=== PATIENT | female | born 1930 | race Caucasian/White ===

== ENCOUNTER 2017-10-05 12:20 | Inpatient (IN) | payer MEDICARE, BC ==
[~2017-10-05] VITALS: Ht 152.4 cm; Wt 66.7 kg
[2017-10-05] MEDS ORDERED: aspirin 81mg tab.chew PO ONE (12:30)
[2017-10-05] MEDS ORDERED: nitroGLYCERIN 0.4mg SUBLingual tab SL PRN (12:30)
[2017-10-05 12:44] LABS: BASOPHILS % (AUTO) 0.5 % (0-1); EOSINOPHILS # (AUTO) 0.2 X10'3 (0-0.9); EOSINOPHILS % (AUTO) 3.9 % (0-6); HEMATOCRIT 33.9 % (35.0-45.0); HEMOGLOBIN 11.5 g/dl (12.0-16.0); LYMPHOCYTES # (AUTO) 1.7 X10'3 (1.1-4.8); LYMPHOCYTES % (AUTO) 31.8 % (21-51); MEAN CORPUSCULAR HEMOGLOBIN 28.9 PG (27.0-31.0); MONOCYTES # (AUTO) 0.6 X10'3 (0-0.9); NEUTROPHILS # (AUTO) 2.8 X10'3 (1.8-7.7); NEUTROPHILS % (AUTO) 51.8 % (42-75); PLATELET COUNT 281 X10'3 (140-440); RED BLOOD COUNT 3.98 X10'6 (4.20-5.60); RED CELL DISTRIBUTION WIDTH 14.3 % (11.5-14.5); WHITE BLOOD COUNT 5.3 X10'3 (4.5-11.0)
[2017-10-05 12:55] LABS: PARTIAL THROMBOPLASTIN TIME 31 SECONDS (22-32); PROTHROMBIN TIME 10.2 SECONDS (9.0-12.0)
[2017-10-05 12:59] LABS: ALANINE AMINOTRANSFERASE 21 U/L (12-78); ALBUMIN 3.1 G/DL (3.4-5.0); ALBUMIN/GLOBULIN RATIO 0.7 (1.1-1.5); ALKALINE PHOSPHATASE 70 IU/L (46-116); ANION GAP 10 (8-16); ASPARTATE AMINO TRANSFERASE 24 U/L (10-37); BILIRUBIN,TOTAL 0.3 MG/DL (0.1-1.0); BLOOD UREA NITROGEN 24 MG/DL (7-18); CALCIUM 8.9 MG/DL (8.5-10.1); CHLORIDE 97 MMOL/L (99-107); GLUCOSE 90 MG/DL (70-104); POTASSIUM 3.9 MMOL/L (3.5-5.1); SODIUM 135 MMOL/L (135-145); TOTAL CARBON DIOXIDE 27.8 MMOL/L (24-32); TOTAL PROTEIN 7.3 G/DL (6.4-8.2); eGFR 43 ML/MIN
[2017-10-05] MEDS ORDERED: ipratropium/albuterol 3ml nebule ONE (13:53)
[2017-10-05] MEDS ORDERED: magnesium hydroxide 30ml (MOM) UD suspension PO PRN (14:35)
[2017-10-05] MEDS ORDERED: acetaminophen 325mg tablet PO PRN ×2 (14:35)
[2017-10-05] MEDS ORDERED: enoxaparin 40mg/0.4ml syringe SUBCUT SCH (14:35)
[2017-10-05] MEDS ORDERED: mag hydrox/Alum hydrox/simeth 30ml oral suspension PO PRN (14:35)
[2017-10-05] MEDS ORDERED: HYDROcodone/acetaminophen 5mg/325mg tablet PO PRN (14:35)
[2017-10-05] MEDS ORDERED: ondansetron/PF 4mg/2ml inj IV PRN (14:35)
[2017-10-05] MEDS ORDERED: albuterol 2.5 MG/3 ML nebule NEB ONE (15:05)
[2017-10-05] MEDS ORDERED: ASPI-1265 PO (15:26)
[2017-10-05] MEDS ORDERED: LOSA25TA96 PO (15:27)
[2017-10-05] MEDS ORDERED: METO-395 PO (15:28)
[2017-10-05] MEDS ORDERED: FLUO20CA39 PO (15:29)
[2017-10-05] MEDS ORDERED: OMEP-271 PO (15:30)
[2017-10-05 15:32] LABS: CLARITY,URINE SLIGHTLY CLOUDY (Clear); COLOR,URINE YELLOW (Yellow); GLUCOSE, URINE NEGATIVE (Neg); KETONES,URINE NEGATIVE (Neg); LEUKOCYTE ESTERASE ,URINE SMALL (Neg); NITRITES, URINE NEGATIVE (Neg); OCCULT BLOOD,URINE TRACE-LYSED (Neg); PH,URINE 5.5 (4.8-8.0); PROTEIN,URINE NEGATIVE (Neg); UA COLLECTION TYPE CLN CATCH MIDSTREAM; UROBILINOGEN,URINE 0.2 E.U/dL (0.2-1.0)
[2017-10-05] MEDS ORDERED: ROPI0.253 PO (15:32)
[2017-10-05] MEDS ORDERED: HYDR25TA4 PO (15:33)
[2017-10-05] MEDS ORDERED: LOSA50TA37 PO (15:35)
[2017-10-05] MEDS ORDERED: ALPR-624 (15:36)
[2017-10-05] MEDS ORDERED: GABA-532 PO (15:36)
[2017-10-05] MEDS ORDERED: OXYB5TAB11 PO (15:38)
[2017-10-05] MEDS ORDERED: FLUT1DIS4 INH (15:39)
[2017-10-05] MEDS ORDERED: ALBU18HF2 INH (15:40)
[2017-10-05] MEDS ORDERED: TIOT18CA3 (15:41)
[2017-10-05 15:45] LABS: BACTERIA,URINE 1+ /HPF (Neg); RBC,URINE 0-2 /HPF (0-2); SQUAMOUS EPITHELIAL CELL,UR FEW /LPF (FEW); WBC,URINE 50-100 /HPF (0-4)
[2017-10-05 15:46] LABS: WBC CLUMPS,URINE MODERATE /HPF (NEGATIVE)
[2017-10-05] MEDS: HYDROchlorothiazide 25mg tablet PO SCH (16:53)
[2017-10-05] MEDS: FLUoxetine 20mg capsule PO SCH (16:53)
[2017-10-05 17:40] VITALS: BP 163/85
[2017-10-05] MEDS: losartan 50mg tablet PO SCH (17:58)
[2017-10-05 19:00] VITALS: BP 165/85
[2017-10-05] MEDS: normal saline 1000ml 1,000 ML IV SCH (19:55)
[2017-10-05] MEDS ORDERED: temazepam 15mg capsule PO PRN (19:55)
[2017-10-05] MEDS: aspirin 81mg tablet.DR PO SCH (20:00)
[2017-10-05] MEDS ORDERED: enoxaparin 30mg/0.3ml syringe SQ SCH (20:00)
[2017-10-05] MEDS ORDERED: enoxaparin 40mg/0.4ml syringe SQ SCH (20:00)
[2017-10-05] MEDS ORDERED: enoxaparin 30mg/0.3ml syringe SUBCUT SCH (20:00)
[2017-10-05] MEDS: ipratropium/albuterol 3ml nebule NEB SCH ×3 (20:00→23:41)
[2017-10-05] MEDS: ALPRAZolam 0.5mg tablet PO PRN (20:30)
[2017-10-05] MEDS ORDERED: ROPINIRole 0.25mg tablet PO SCH (21:00)
[2017-10-05] MEDS ORDERED: sennosides/docusate sodium tablet PO SCH (21:00)
[2017-10-05] MEDS ORDERED: gabapentin 300mg capsule PO SCH (21:00)
[2017-10-05] MEDS ORDERED: atorvastatin 20mg tablet PO SCH (21:00)
[2017-10-05 23:00] VITALS: BP 105/59
[2017-10-06] VITALS (8 sets, daily range): BP systolic 114–159; BP diastolic 53–84
[2017-10-06 01:07] LABS: HEMATOCRIT 30.1 % (35.0-45.0); HEMOGLOBIN 10.2 g/dl (12.0-16.0); MEAN CORPUSCULAR HEMOGLOBIN 28.6 PG (27.0-31.0); MEAN CORPUSCULAR HGB CONC 33.8 % (33.0-36.5); MEAN CORPUSCULAR VOLUME 84.6 FL (78-98); MEAN PLATELET VOLUME 7.2 FL (7.4-10.4); PLATELET COUNT 223 X10'3 (140-440); RED BLOOD COUNT 3.56 X10'6 (4.20-5.60); RED CELL DISTRIBUTION WIDTH 13.4 % (11.5-14.5); WHITE BLOOD COUNT 4.7 X10'3 (4.5-11.0)
[2017-10-06 01:26] LABS: ALBUMIN 2.4 G/DL (3.4-5.0); ANION GAP 9 (8-16); BLOOD UREA NITROGEN 17 MG/DL (7-18); BUN/CREATININE RATIO 18.3 (6.6-38.0); CALCIUM 7.3 MG/DL (8.5-10.1); CHLORIDE 106 MMOL/L (99-107); CHOL/HDL RATIO 2.4 (0.00-4.99); CHOLESTEROL 112 MG/DL (0-200); CREATININE 0.93 MG/DL (0.40-0.90); GLUCOSE 83 MG/DL (70-104); HDL CHOLESTEROL 46 MG/DL (35-60); LDL CHOLESTEROL 43 MG/DL (50-100); SODIUM 142 MMOL/L (135-145); TOTAL CARBON DIOXIDE 26.6 MMOL/L (24-32); TRIGLYCERIDES 89 MG/DL (20-135); eGFR 57 ML/MIN
[2017-10-06 01:29] LABS: POTASSIUM 2.8 MMOL/L (3.5-5.1)
[2017-10-06] MEDS ORDERED: potassium Cl 40MEQ/NS 500ml 500 ML IV PRN ×2 (01:30)
[2017-10-06] MEDS ORDERED: magnesium Cl slow-release 64mg tablet PO PRN (01:30)
[2017-10-06] MEDS ORDERED: magnesium 2GM in 50ml NS 50 ML IV PRN (01:30)
[2017-10-06] MEDS ORDERED: potassium Cl 20 mEq SR tablet PO PRN (01:30)
[2017-10-06] MEDS ORDERED: magnesium 4gm in 100ml NS 100 ML IV PRN (01:30)
[2017-10-06] MEDS: potassium Cl 20 mEq SR tablet PO PRN ×2 (01:45→05:37)
[2017-10-06] MEDS: ipratropium/albuterol 3ml nebule NEB SCH ×4 (04:00→15:05)
[2017-10-06] MEDS: ALPRAZolam 0.5mg tablet PO PRN (04:32)
[2017-10-06] MEDS ORDERED: fentaNYL/PF 50MCG/1 ML 2ML syringe ONE (06:36)
[2017-10-06] MEDS ORDERED: heparin 1,000unit/ml 10ml vial 10 ML ONE (06:36)
[2017-10-06] MEDS ORDERED: LIDOcaine 1%/PF (10mg/ml) 5ml vial ONE (06:36)
[2017-10-06] MEDS ORDERED: midazolam 2 mg/2 ml injection ONE (06:36)
[2017-10-06] MEDS ORDERED: iohexol 350 MG/ML 50ML vial IV ONE (06:36)
[2017-10-06] MEDS ORDERED: nitroGLYCERIN-Tridil 50MG/D5W 250 ML IV ONE (06:36)
[2017-10-06] MEDS ORDERED: iohexol 350MG/ML 100ml bottle IV ONE ×2 (06:36→07:42)
[2017-10-06] MEDS ORDERED: pantoprazole 40mg Tablet.DR PO SCH (07:30)
[2017-10-06] MEDS: aspirin 81mg tablet.DR PO SCH (08:00)
[2017-10-06] MEDS: FLUoxetine 20mg capsule PO SCH (08:00)
[2017-10-06] MEDS: HYDROchlorothiazide 25mg tablet PO SCH (08:00)
[2017-10-06] MEDS: losartan 50mg tablet PO SCH (08:00)
[2017-10-06] MEDS: normal saline 1000ml 1,000 ML IV SCH (09:15)
[2017-10-06 12:56] LABS: ISTAT HGB ART 11.2 g/dl (12.0-16.0); ISTAT Hct ART 33 %PCV (35-48); ISTAT Hct MIX 34 %PCV (35-48); ISTAT O2 SATURATION ARTERIAL 98 % (95-98); ISTAT O2 SATURATION MIX VENOUS 69 % (60-80); ISTAT SOURCE ART; ISTAT SOURCE MIX
[2017-10-06] MEDS ORDERED: LOSA50TA37 PO (15:31)
== END 2017-10-06 17:06 | disposition home or self-care (01) | DRG 287 ==
LOC: ER 12:20 → ED HOLD 14:32 → PCU 3S 17:30
PROVIDERS: ADMIT Family Medicine; ATTEND Family Medicine
PROC: 4A023N8 Measurement of Cardiac Sampling and Pressure, Bilateral, Percutaneous Approach (ICD-10-PCS; principal; 2017-10-06)
PROC: B2111ZZ Fluoroscopy of Multiple Coronary Arteries using Low Osmolar Contrast (ICD-10-PCS; 2017-10-06)
PROC: B2151ZZ Fluoroscopy of Left Heart using Low Osmolar Contrast (ICD-10-PCS; 2017-10-06)
DX: R07.89 Other chest pain (principal); Z99.81 Dependence on supplemental oxygen; J44.9 Chronic obstructive pulmonary disease, unspecified; I08.1 Rheumatic disorders of both mitral and tricuspid valves; I25.10 Atherosclerotic heart disease of native coronary artery without angina pectoris; R00.1 Bradycardia, unspecified; I10 Essential (primary) hypertension; E78.5 Hyperlipidemia, unspecified; F32.9 Major depressive disorder, single episode, unspecified; F41.9 Anxiety disorder, unspecified; K21.9 Gastro-esophageal reflux disease without esophagitis; G25.81 Restless legs syndrome; G89.29 Other chronic pain; J06.9 Acute upper respiratory infection, unspecified; M54.9 Dorsalgia, unspecified; Z95.5 Presence of coronary angioplasty implant and graft; Z90.49 Acquired absence of other specified parts of digestive tract; Z88.1 Allergy status to other antibiotic agents; Z88.8 Allergy status to other drugs, medicaments and biological substances; Z79.899 Other long term (current) drug therapy; Z79.01 Long term (current) use of anticoagulants; Z79.82 Long term (current) use of aspirin; Z80.6 Family history of leukemia
CPT/HCPCS: 36415; 71045; 80048; 80053; 80061; 81001; 82803; 83880; 84132; 84484; 85014; 85025; 85027; 85610; 85730; 87088; 93306; 93460; 94640; 94760; 99152; 99153; A4620; A6257; C1760; C1769; C1894; J1644; J1650; J2001; J2250; J3010; J3490; J7030; Q9967

== ENCOUNTER 2019-06-04 11:16 | Inpatient (IN) | payer MEDICARE, BC ==
[~2019-06-04] VITALS: Ht 152.4 cm; Wt 65.0 kg
[~2019-06-04 11:16] MED LIST: ALBU18HF2 INH; ALPR-624; ASPI-1265 PO; FLUO20CA39 PO; FLUT1DIS4 INH; GABA-532 PO; HYDR25TA4 PO; LOSA50TA64 PO; OMEP-271 PO; OXYB5TAB16 PO; ROPI0.2534 PO; TIOT18CA3 IH
[2019-06-04] MEDS ORDERED: ipratropium/albuterol 3ml nebule NEB ONE (12:45)
[2019-06-04] MEDS ORDERED: LOVA40TA2 PO (12:48)
[2019-06-04] MEDS ORDERED: METO-395 PO (12:48)
[2019-06-04] MEDS ORDERED: normal saline 1000ML IV soln IVB ONE (12:55)
[2019-06-04 13:24] LABS: BASOPHILS % (AUTO) 0.2 % (0-1); EOSINOPHILS % (AUTO) 0.1 % (0-6); HEMATOCRIT 32.1 % (35.0-45.0); HEMOGLOBIN 10.9 g/dl (12.0-16.0); LYMPHOCYTES # (AUTO) 1.9 X10'3 (1.1-4.8); MEAN CORPUSCULAR HEMOGLOBIN 29.6 PG (27.0-31.0); MEAN CORPUSCULAR HGB CONC 33.9 g/dL (33.0-36.5); MEAN CORPUSCULAR VOLUME 87.2 FL (78-98); MEAN PLATELET VOLUME 7.3 FL (7.4-10.4); MONOCYTES # (AUTO) 1.3 X10'3 (0-0.9); MONOCYTES % (AUTO) 6.3 % (2-12); NEUTROPHILS # (AUTO) 17.7 X10'3 (1.8-7.7); NEUTROPHILS % (AUTO) 84.4 % (42-75); PLATELET COUNT 288 X10'3 (140-440); RED BLOOD COUNT 3.68 X10'6 (4.20-5.60); RED CELL DISTRIBUTION WIDTH 15.6 % (11.5-14.5)
[2019-06-04 13:38] LABS: D-DIMER 2.02 MG/L FEU (0-0.50); PARTIAL THROMBOPLASTIN TIME 35 SECONDS (22-32)
[2019-06-04 13:40] LABS: ALANINE AMINOTRANSFERASE 18 U/L (12-78); ALBUMIN 2.5 G/DL (3.4-5.0); ALBUMIN/GLOBULIN RATIO 0.5 (1.1-1.5); ALKALINE PHOSPHATASE 96 IU/L (46-116); ANION GAP 9 (8-16); ASPARTATE AMINO TRANSFERASE 24 U/L (10-37); BILIRUBIN,TOTAL 0.8 MG/DL (0.1-1.0); BLOOD UREA NITROGEN 25 MG/DL (7-18); BUN/CREATININE RATIO 17.4 (6.6-38.0); CALCIUM 8.5 MG/DL (8.5-10.1); CHLORIDE 94 MMOL/L (99-107); CREATININE 1.44 MG/DL (0.40-0.90); GLUCOSE 117 MG/DL (70-104); POTASSIUM 3.3 MMOL/L (3.5-5.1); SODIUM 130 MMOL/L (135-145); TOTAL CARBON DIOXIDE 27.4 MMOL/L (24-32); TOTAL PROTEIN 7.3 G/DL (6.4-8.2); eGFR 34 ML/MIN
[2019-06-04 13:46] LABS: TOTAL CELLS COUNTED 100
[2019-06-04 13:47] LABS: ANISOCYTOSIS 1+; MAGNESIUM 1.7 MG/DL (1.5-2.4); PLATELET ESTIMATE NORMAL; POLYCHROMASIA FEW; TOXIC GRANULATION 3+; TOXIC VACUOLATION 1+
[2019-06-04 13:55] LABS: CLARITY,URINE CLEAR (Clear); COLOR,URINE YELLOW (Yellow); GLUCOSE, URINE NEGATIVE (Neg); KETONES,URINE NEGATIVE (Neg); LEUKOCYTE ESTERASE ,URINE NEGATIVE (Neg); NITRITES, URINE NEGATIVE (Neg); OCCULT BLOOD,URINE SMALL (Neg); PROTEIN,URINE 30 mg/dl (Neg); UA COLLECTION TYPE CLN CATCH MIDSTREAM; UROBILINOGEN,URINE 0.2 E.U/dL (0.2-1.0)
[2019-06-04 14:02] LABS: BACTERIA,URINE FEW /HPF (Neg); FINE GRANULAR CAST 0-3 /LPF (NEGATIVE); HYALINE CASTS 0-3 /LPF (NEGATIVE); MUCUS STRANDS NONE SEEN /LPF (Neg); RBC,URINE 0-2 /HPF (0-2); RENAL CELLS, URINE FEW /HPF; SQUAMOUS EPITHELIAL CELL,UR FEW /LPF (FEW); WBC,URINE 0-4 /HPF (0-4)
[2019-06-04 14:11] LABS: C-REACTIVE PROTEIN 35.52 MG/DL (0.0-0.5)
[2019-06-04] MEDS ORDERED: CefTRIAXone 2gm/D5W 50ml 50 ML IV ONE (14:45)
[2019-06-04] MEDS ORDERED: levoFLOXACIN 750MG TABLET PO ONE (14:45)
[2019-06-04] MEDS ORDERED: mag hydrox/Alum hydrox/simeth 30ml oral suspension PO PRN (14:55)
[2019-06-04] MEDS ORDERED: ondansetron/PF 4mg/2ml inj IV PRN (14:55)
[2019-06-04] MEDS ORDERED: acetaminophen 325mg tablet PO PRN (14:55)
[2019-06-04] MEDS ORDERED: magnesium hydroxide 30ml (MOM) UD suspension PO PRN (14:55)
[2019-06-04] MEDS ORDERED: ALPR1TAB7 PO (15:31)
[2019-06-04] MEDS: normal saline 1000ml 1,000 ML IV SCH (15:38)
[2019-06-04] MEDS ORDERED: cefepime 1GM in D5W 50mL 50 ML IV SCH (16:00)
[2019-06-04] MEDS: ipratropium/albuterol 3ml nebule NEB SCH ×3 (16:44→23:00)
[2019-06-04] MEDS ORDERED: albuterol 2.5 MG/3 ML nebule NEB PRN (16:50)
[2019-06-04 17:17] VITALS: BP 135/65
--- NOTE | 2019-06-04 18:13 | NUR ---
Problems reprioritized. Patient report given, questions answered & plan of care reviewed with TONY Sandoval.
[2019-06-04] MEDS ORDERED: potassium Cl 20 mEq SR tablet PO PRN (19:50)
[2019-06-04] MEDS ORDERED: magnesium 2GM in 50ml NS 50 ML IV PRN (19:50)
[2019-06-04] MEDS ORDERED: magnesium Cl slow-release 64mg tablet PO PRN (19:50)
[2019-06-04] MEDS ORDERED: potassium CL 10mEq/100ml bag 100 ML IV PRN (19:50)
[2019-06-04] MEDS ORDERED: albuterol 2.5 MG/3 ML nebule NEB SCH (20:00)
[2019-06-04] MEDS: budesonide 0.5mg/2ml UD nebule IH SCH (20:16)
[2019-06-04] MEDS: FLUoxetine 20mg capsule PO SCH (20:34)
[2019-06-04] MEDS: gabapentin 300mg capsule PO SCH (20:34)
[2019-06-04] MEDS: ROPINIRole 0.25mg tablet PO SCH (20:34)
[2019-06-04] MEDS: ALPRAZolam 0.5mg tablet PO SCH (20:34)
[2019-06-04] MEDS: heparin, porcine 5000 units/ml vial SQ SCH (20:35)
[2019-06-04] MEDS: atorvastatin 10mg tablet PO SCH (20:35)
[2019-06-04] MEDS: potassium Cl 20 mEq SR tablet PO PRN (20:35)
[2019-06-04 23:00] VITALS: BP 132/59
[2019-06-05] MEDS: normal saline 1000ml 1,000 ML IV SCH ×3 (00:54→20:54)
[2019-06-05] MEDS: cefepime 1GM in D5W 50mL 50 ML IV SCH ×4 (01:06→23:13)
[2019-06-05 01:16] LABS: BASOPHILS % (AUTO) 0.3 % (0-1); EOSINOPHILS % (AUTO) 0.1 % (0-6); HEMATOCRIT 26.7 % (35.0-45.0); HEMOGLOBIN 9.2 g/dl (12.0-16.0); LYMPHOCYTES # (AUTO) 1.6 X10'3 (1.1-4.8); LYMPHOCYTES % (AUTO) 9.6 % (21-51); MEAN CORPUSCULAR HGB CONC 34.6 g/dL (33.0-36.5); MEAN CORPUSCULAR VOLUME 86.6 FL (78-98); MEAN PLATELET VOLUME 7.1 FL (7.4-10.4); MONOCYTES # (AUTO) 1.1 X10'3 (0-0.9); MONOCYTES % (AUTO) 6.3 % (2-12); NEUTROPHILS # (AUTO) 13.9 X10'3 (1.8-7.7); NEUTROPHILS % (AUTO) 83.7 % (42-75); PLATELET COUNT 253 X10'3 (140-440); RED BLOOD COUNT 3.08 X10'6 (4.20-5.60); RED CELL DISTRIBUTION WIDTH 15.5 % (11.5-14.5); WHITE BLOOD COUNT 16.7 X10'3 (4.5-11.0)
[2019-06-05 01:32] LABS: ALBUMIN 1.9 G/DL (3.4-5.0); ANION GAP 9 (8-16); BLOOD UREA NITROGEN 21 MG/DL (7-18); BUN/CREATININE RATIO 16.7 (6.6-38.0); CALCIUM 7.4 MG/DL (8.5-10.1); CHLORIDE 100 MMOL/L (99-107); CREATININE 1.26 MG/DL (0.40-0.90); GLUCOSE 108 MG/DL (70-104); POTASSIUM 3.2 MMOL/L (3.5-5.1); SODIUM 134 MMOL/L (135-145); TOTAL CARBON DIOXIDE 25.3 MMOL/L (24-32); eGFR 40 ML/MIN
[2019-06-05 03:00] VITALS: BP 111/72
[2019-06-05] MEDS: ipratropium/albuterol 3ml nebule NEB SCH ×6 (04:25→23:00)
--- NOTE | 2019-06-05 06:13 | NUR ---
Problems reprioritized. Patient report given, questions answered & plan of care reviewed with Mili JIMENEZ.
--- NOTE | 2019-06-05 06:15 | NUR ---
Patient in room PCU 3011. I have received report from TONY Menendez and had the opportunity to ask questions and assume patient care.
[2019-06-05] MEDS: budesonide 0.5mg/2ml UD nebule IH SCH ×2 (07:06→19:08)
--- NOTE | 2019-06-05 07:07 | NUR ---
Pt declined AM B/P check.
[2019-06-05] MEDS ORDERED: ipratropium 0.5 MG/2.5ML nebule NEB SCH (08:00)
[2019-06-05 08:02] VITALS: BP 132/71
[2019-06-05] MEDS: ROPINIRole 0.25mg tablet PO SCH ×2 (08:06→19:54)
[2019-06-05] MEDS: metoprolol succinate 25mg (24-HOUR) SR. Tablet PO SCH (08:08)
[2019-06-05] MEDS: heparin, porcine 5000 units/ml vial SQ SCH ×2 (08:08→19:53)
[2019-06-05] MEDS: HYDROchlorothiazide 25mg tablet PO SCH (08:09)
[2019-06-05] MEDS: oxybutynin 5mg tablet PO SCH (08:10)
[2019-06-05] MEDS: aspirin 81mg tab.chew PO SCH (08:10)
[2019-06-05] MEDS: pantoprazole 40mg Tablet.DR PO SCH (08:11)
[2019-06-05] MEDS: losartan 50mg tablet PO SCH (08:11)
--- NOTE | 2019-06-05 09:00 | NUR ---
Dr. Higginbotham at bedside. Orders received for IS.
--- NOTE | 2019-06-05 09:02 | NUR ---
Requested 0800 Cefepime to be delivered for pt from pharmacy.
[2019-06-05] MEDS: potassium Cl 20 mEq SR tablet PO PRN ×3 (10:07→21:46)
[2019-06-05 11:00] VITALS: BP 127/69
[2019-06-05 15:00] VITALS: BP 146/67
--- NOTE | 2019-06-05 18:00 | NUR ---
Patient in room PCU 3011. I have received report from Mili JIMENEZ and had the opportunity to ask questions and assume patient care.
--- NOTE | 2019-06-05 18:47 | NUR ---
Problems reprioritized. Patient report given, questions answered & plan of care reviewed with TONY Gallegos.
[2019-06-05 19:00] VITALS: BP 148/78
[2019-06-05] MEDS: lactobacillus rhamnosus 10,000 MMU CELLS/CAPSULE PO SCH (19:54)
[2019-06-05] MEDS: gabapentin 300mg capsule PO SCH (20:00)
[2019-06-05] MEDS: FLUoxetine 20mg capsule PO SCH (20:00)
[2019-06-05] MEDS: atorvastatin 10mg tablet PO SCH (20:00)
[2019-06-05] MEDS: ALPRAZolam 0.5mg tablet PO SCH (20:00)
[2019-06-05] MEDS ORDERED: Melatonin 3mg tablet PO ONE (21:00)
[2019-06-05 23:00] VITALS: BP 114/55
[2019-06-06] MEDS: ipratropium/albuterol 3ml nebule NEB SCH ×6 (02:57→23:00)
[2019-06-06 03:00] VITALS: BP 108/51
[2019-06-06 05:25] LABS: BASOPHILS % (AUTO) 0.4 % (0-1); EOSINOPHILS # (AUTO) 0.1 X10'3 (0-0.9); EOSINOPHILS % (AUTO) 1.4 % (0-6); HEMATOCRIT 26.1 % (35.0-45.0); LYMPHOCYTES # (AUTO) 1.8 X10'3 (1.1-4.8); LYMPHOCYTES % (AUTO) 17.8 % (21-51); MEAN CORPUSCULAR HEMOGLOBIN 30.1 PG (27.0-31.0); MEAN CORPUSCULAR HGB CONC 34.7 g/dL (33.0-36.5); MEAN CORPUSCULAR VOLUME 86.8 FL (78-98); MONOCYTES # (AUTO) 0.8 X10'3 (0-0.9); MONOCYTES % (AUTO) 7.5 % (2-12); NEUTROPHILS # (AUTO) 7.5 X10'3 (1.8-7.7); NEUTROPHILS % (AUTO) 72.9 % (42-75); PLATELET COUNT 319 X10'3 (140-440); RED CELL DISTRIBUTION WIDTH 15.6 % (11.5-14.5); WHITE BLOOD COUNT 10.2 X10'3 (4.5-11.0)
[2019-06-06 05:31] LABS: ANION GAP 8 (8-16); BLOOD UREA NITROGEN 18 MG/DL (7-18); BUN/CREATININE RATIO 15.8 (6.6-38.0); CHLORIDE 100 MMOL/L (99-107); CREATININE 1.14 MG/DL (0.40-0.90); GLUCOSE 96 MG/DL (70-104); SODIUM 134 MMOL/L (135-145); TOTAL CARBON DIOXIDE 26.3 MMOL/L (24-32); eGFR 45 ML/MIN
[2019-06-06 06:00] VITALS: BP 147/79
--- NOTE | 2019-06-06 06:12 | NUR ---
Problems reprioritized. Patient report given, questions answered & plan of care reviewed with Shilpi JIMENEZ.
--- NOTE | 2019-06-06 06:24 | NUR ---
Patient in room PCU 3011. I have received report from Gaby JIMENEZ and had the opportunity to ask questions and assume patient care. All patient's needs met at this time.
[2019-06-06] MEDS: budesonide 0.5mg/2ml UD nebule IH SCH ×4 (06:57→19:43)
[2019-06-06] MEDS: lactobacillus rhamnosus 10,000 MMU CELLS/CAPSULE PO SCH ×2 (07:49→19:37)
[2019-06-06] MEDS: normal saline 1000ml 1,000 ML IV SCH (07:49)
[2019-06-06] MEDS: metoprolol succinate 25mg (24-HOUR) SR. Tablet PO SCH (07:50)
[2019-06-06] MEDS: ROPINIRole 0.25mg tablet PO SCH ×2 (07:51→19:38)
[2019-06-06] MEDS: losartan 50mg tablet PO SCH (07:51)
[2019-06-06] MEDS: pantoprazole 40mg Tablet.DR PO SCH (07:51)
[2019-06-06] MEDS: aspirin 81mg tab.chew PO SCH (07:51)
[2019-06-06] MEDS: oxybutynin 5mg tablet PO SCH (07:51)
[2019-06-06] MEDS: HYDROchlorothiazide 25mg tablet PO SCH (07:52)
[2019-06-06] MEDS: cefepime 1GM in D5W 50mL 50 ML IV SCH ×3 (07:52→23:53)
[2019-06-06] MEDS: heparin, porcine 5000 units/ml vial SQ SCH ×2 (08:00→19:41)
[2019-06-06 10:19] LABS: LARGE PLATELETS FEW; PLATELET ESTIMATE NORMAL; TOTAL CELLS COUNTED 100
[2019-06-06 11:00] VITALS: BP 134/58
--- NOTE | 2019-06-06 11:18 | NUR ---
Paged Dr Higginbotham MESSAGE: Re: Gem Duncan Rm [id number] FYI Pt and family are requesting she gets her Spiriva inhaler and Advair inhaler. It is in med rec, can you okay them? Thanks Shilpi [phone]
[2019-06-06 15:00] VITALS: BP 140/58
--- NOTE | 2019-06-06 18:33 | NUR ---
Problems reprioritized. Patient report given, questions answered & plan of care reviewed with Tanvi JIMENEZ. All patients' needs met at this time.
[2019-06-06 19:00] VITALS: BP 155/78
--- NOTE | 2019-06-06 19:28 | NUR ---
pt is frustrated that she didn't get to go home today, wants all her meds now and to go to sleep
[2019-06-06] MEDS: atorvastatin 10mg tablet PO SCH (19:37)
[2019-06-06] MEDS: gabapentin 300mg capsule PO SCH (19:37)
[2019-06-06] MEDS: FLUoxetine 20mg capsule PO SCH (19:37)
[2019-06-06] MEDS: ALPRAZolam 0.5mg tablet PO SCH (19:37)
[2019-06-06] MEDS ORDERED: Melatonin 3mg tablet PO SCH (20:00)
[2019-06-06] MEDS ORDERED: Melatonin 3mg tablet PO ONE (21:00)
[2019-06-06 23:00] VITALS: BP 134/95
[2019-06-07] MEDS: ipratropium/albuterol 3ml nebule NEB SCH ×3 (02:35→11:07)
[2019-06-07 03:00] VITALS: BP 123/65
[2019-06-07 05:41] LABS: BASOPHILS % (AUTO) 0.4 % (0-1); EOSINOPHILS # (AUTO) 0.2 X10'3 (0-0.9); EOSINOPHILS % (AUTO) 3.2 % (0-6); HEMATOCRIT 26.6 % (35.0-45.0); LYMPHOCYTES # (AUTO) 1.8 X10'3 (1.1-4.8); LYMPHOCYTES % (AUTO) 23.8 % (21-51); MEAN CORPUSCULAR HEMOGLOBIN 29.5 PG (27.0-31.0); MEAN CORPUSCULAR HGB CONC 33.9 g/dL (33.0-36.5); MEAN CORPUSCULAR VOLUME 86.9 FL (78-98); MONOCYTES # (AUTO) 0.6 X10'3 (0-0.9); MONOCYTES % (AUTO) 8.1 % (2-12); NEUTROPHILS # (AUTO) 4.9 X10'3 (1.8-7.7); NEUTROPHILS % (AUTO) 64.5 % (42-75); PLATELET COUNT 343 X10'3 (140-440); RED BLOOD COUNT 3.05 X10'6 (4.20-5.60); RED CELL DISTRIBUTION WIDTH 15.6 % (11.5-14.5); WHITE BLOOD COUNT 7.6 X10'3 (4.5-11.0)
[2019-06-07 06:00] VITALS: BP 158/78
[2019-06-07 06:02] LABS: ANION GAP 8 (8-16); BLOOD UREA NITROGEN 14 MG/DL (7-18); CALCIUM 8.6 MG/DL (8.5-10.1); CHLORIDE 100 MMOL/L (99-107); CREATININE 1.08 MG/DL (0.40-0.90); GLUCOSE 98 MG/DL (70-104); POTASSIUM 3.7 MMOL/L (3.5-5.1); SODIUM 134 MMOL/L (135-145); TOTAL CARBON DIOXIDE 25.9 MMOL/L (24-32); eGFR 48 ML/MIN
--- NOTE | 2019-06-07 06:16 | NUR ---
Problems reprioritized. Patient report given, questions answered & plan of care reviewed with Shilpi JIMENEZ.
--- NOTE | 2019-06-07 06:16 | NUR ---
pt slept all night
[2019-06-07 06:53] LABS: TOTAL CELLS COUNTED 100
[2019-06-07 06:54] LABS: PLATELET ESTIMATE NORMAL
[2019-06-07] MEDS: budesonide 0.5mg/2ml UD nebule IH SCH (07:09)
[2019-06-07] MEDS: heparin, porcine 5000 units/ml vial SQ SCH (08:00)
[2019-06-07] MEDS: cefepime 1GM in D5W 50mL 50 ML IV SCH (08:22)
[2019-06-07] MEDS: oxybutynin 5mg tablet PO SCH (08:22)
[2019-06-07] MEDS: lactobacillus rhamnosus 10,000 MMU CELLS/CAPSULE PO SCH (08:22)
[2019-06-07] MEDS: pantoprazole 40mg Tablet.DR PO SCH (08:22)
[2019-06-07] MEDS: aspirin 81mg tab.chew PO SCH (08:23)
[2019-06-07] MEDS: ROPINIRole 0.25mg tablet PO SCH (08:23)
[2019-06-07] MEDS: HYDROchlorothiazide 25mg tablet PO SCH (08:23)
[2019-06-07] MEDS: losartan 50mg tablet PO SCH (08:23)
[2019-06-07] MEDS: metoprolol succinate 25mg (24-HOUR) SR. Tablet PO SCH (08:23)
[2019-06-07 11:00] VITALS: BP 126/76
[2019-06-07] MEDS ORDERED: LEVO500T2 PO (11:03)
== END 2019-06-07 13:10 | disposition home health service (06) | DRG 871 ==
LOC: ER 11:16 → ED HOLD 14:54 → PCU 3S 18:42
PROVIDERS: ADMIT Family Medicine; ATTEND Family Medicine
DX: A41.9 Sepsis, unspecified organism (principal); J18.9 Pneumonia, unspecified organism; J96.21 Acute and chronic respiratory failure with hypoxia; E87.1 Hypo-osmolality and hyponatremia; J44.1 Chronic obstructive pulmonary disease with (acute) exacerbation; J44.0 Chronic obstructive pulmonary disease with (acute) lower respiratory infection; N17.9 Acute kidney failure, unspecified; E78.5 Hyperlipidemia, unspecified; E87.6 Hypokalemia; G89.29 Other chronic pain; Z66 Do not resuscitate; R59.0 Localized enlarged lymph nodes; M54.2 Cervicalgia; R19.7 Diarrhea, unspecified; G25.81 Restless legs syndrome; I10 Essential (primary) hypertension; I25.10 Atherosclerotic heart disease of native coronary artery without angina pectoris; I25.2 Old myocardial infarction; Z99.81 Dependence on supplemental oxygen; Z88.8 Allergy status to other drugs, medicaments and biological substances; Z87.440 Personal history of urinary (tract) infections; Z90.49 Acquired absence of other specified parts of digestive tract
CPT/HCPCS: 36415; 70450; 71045; 71250; 74176; 80048; 80053; 81001; 83605; 83735; 83880; 84145; 84484; 85025; 85379; 85610; 85651; 85730; 86140; 87040; 87081; 87502; 87503; 93005; 94640; 94760; 97110; 97116; 97162; 99285; G0378; J0692; J0696; J1644; J7030; J7626

== ENCOUNTER 2019-12-21 17:42 | Emergency (ER) | payer MEDICARE, BC ==
[~2019-12-21] VITALS: Ht 152.4 cm; Wt 65.2 kg
[~2019-12-21 17:42] MED LIST changes: -ALPR-624; +ALPR1TAB7 PO; +LIDOcaine 1% W/epiNEPHrine 1:200,000 10ml vial ONE; +LOVA40TA2 PO; +METO-395 PO
--- NOTE | 2019-12-21 18:10 | NUR ---
Pt. in CT and X-Ray
[2019-12-21] MEDS ORDERED: traMADol 50MG tablet PO ONE (19:15)
[2019-12-21] MEDS ORDERED: LIDOCAINE 5% OINTMENT 35GM TP ONE (19:45)
[2019-12-21] MEDS ORDERED: LORazepam 1 MG tablet PO ONE (19:55)
[2019-12-21] MEDS ORDERED: HYDROcodone/acetaminophen 5mg/325mg tablet PO ONE (20:20)
[2019-12-21] MEDS ORDERED: ondansetron 4mg rapidly disintigrating tab PO ONE ×3 (20:20→21:55)
[2019-12-21] MEDS ORDERED: ondansetron 4mg/5ml UD cup PO ONE (21:50)
[2019-12-21 22:05] VITALS: BP 116/61
== END 2019-12-21 22:02 | disposition home or self-care (01) ==
LOC: ER 17:43
DX: S01.81XA Laceration without foreign body of other part of head, initial encounter (principal); S20.212A Contusion of left front wall of thorax, initial encounter; S66.912A Strain of unspecified muscle, fascia and tendon at wrist and hand level, left hand, initial encounter; S66.911A Strain of unspecified muscle, fascia and tendon at wrist and hand level, right hand, initial encounter; S80.01XA Contusion of right knee, initial encounter; S80.02XA Contusion of left knee, initial encounter; R07.89 Other chest pain; R51 Headache; I25.10 Atherosclerotic heart disease of native coronary artery without angina pectoris; I25.2 Old myocardial infarction; Z79.2 Long term (current) use of antibiotics; Z88.8 Allergy status to other drugs, medicaments and biological substances; Z79.82 Long term (current) use of aspirin; Z79.899 Other long term (current) drug therapy; Z95.5 Presence of coronary angioplasty implant and graft; W22.8XXA Striking against or struck by other objects, initial encounter; W18.39XA Other fall on same level, initial encounter; Y92.89 Other specified places as the place of occurrence of the external cause; Y93.89 Activity, other specified; Y99.8 Other external cause status
CPT/HCPCS: 12013; 29125; 70450; 70486; 71045; 72125; 73130; 99285